=== PATIENT | female | born 1990 | race African-American/Black ===

== ENCOUNTER 2018-01-24 18:17 | Emergency (ER) | payer OTHER ==
[2018-01-28 14:07] LABS: BEDSIDE GLUCOSE 88 MG/DL (70-105)
== END 2018-01-24 19:15 | disposition left against medical advice (07) ==
LOC: M ED 18:17
DX: R51 Headache (principal); Z53.21 Procedure and treatment not carried out due to patient leaving prior to being seen by health care provider